=== PATIENT | female | born 1960 | race Caucasian/White ===

== ENCOUNTER 2016-08-10 07:57 | Day surgery (SDC) | payer OTHER ==
[~2016-08-10] VITALS: Ht 157.6 cm; Wt 70.9 kg
[2016-08-10] MEDS ORDERED: SODIUM CHLORIDE 0.9% 1,000 ML IV ONE (08:00)
[2016-08-10] MEDS ORDERED: MIDAZOLAM HCL 2 MG/2 ML VIAL ONE (08:07)
[2016-08-10] MEDS ORDERED: FentaNYL CITRATE-PF 100 MCG/2 ML VIAL ONE (08:07)
[2016-08-10] MEDS ORDERED: LEVO75 PO (08:25)
[2016-08-10] MEDS ORDERED: SIME125C81 PO (08:25)
[2016-08-10] MEDS ORDERED: LACT30L PO (08:25)
[2016-08-10] MEDS ORDERED: LIDO5JEL7 TP (08:25)
[2016-08-10] MEDS ORDERED: MECL-111 PO (08:25)
[2016-08-10] MEDS ORDERED: ONDA4 PO (08:25)
[2016-08-10] MEDS ORDERED: LOPE2 PO (08:25)
[2016-08-10] MEDS ORDERED: QUET200T PO (08:25)
[2016-08-10] MEDS ORDERED: SERT100T12 PO (08:25)
[2016-08-10] MEDS ORDERED: GABA-531 PO (08:25)
[2016-08-10] MEDS ORDERED: TRAZ-147 PO (08:25)
[2016-08-10] MEDS ORDERED: AMOX200S7 PO (08:25)
[2016-08-10] MEDS ORDERED: OXYB5 PO (08:25)
[2016-08-10] MEDS ORDERED: FLUT16H NASAL (08:25)
[2016-08-10] MEDS ORDERED: OMEG1CAP82 PO (08:25)
[2016-08-10] MEDS ORDERED: PRAV40 PO (08:26)
[2016-08-10] MEDS ORDERED: OMEP20 PO (08:26)
[2016-08-10] MEDS ORDERED: NAPR-58 PO (08:26)
[2016-08-10] MEDS ORDERED: MethylPREDNISolone SOD SUCC 125 MG/2 ML VIAL IVP ONE (08:45)
[2016-08-10] MEDS ORDERED: MethylPREDNISolone SOD SUCC 125 MG/2 ML VIAL ONE (09:34)
[2016-08-10] MEDS ORDERED: LIDOCAINE HCL 2% 30 ML JELLY TP ONE (12:00)
[2016-08-10] MEDS ORDERED: BENZOCAINE 20% 50 MCG/SPRAY 57 GM TP ONE (12:00)
[2016-08-10] MEDS ORDERED: ALBUTEROL SULFATE 2.5 MG/0.5 ML NEB SOLUTION NEB ONE (12:00)
[2016-08-10] MEDS ORDERED: LIDOCAINE HCL 4% 50 ML SOLUTION TP ONE (12:00)
[2016-08-10] MEDS ORDERED: OXYGEN THERAPY IH SCH (20:00)
== END 2016-08-10 10:50 | disposition home or self-care (01) ==
LOC: SURGERY 07:57
PROVIDERS: ATTEND Internal Medicine Critical Care Medicine
DX: J38.4 Edema of larynx (principal); B37.0 Candidal stomatitis; M54.9 Dorsalgia, unspecified; M54.30 Sciatica, unspecified side; F17.200 Nicotine dependence, unspecified, uncomplicated; Z72.89 Other problems related to lifestyle
CPT/HCPCS: 31623; 31624; 71010; 87015 ×2; 87070; 87077; 87101; 87147; 87186; 87205; 87220; J2250; J2930; J3010; J7030; 88108; 88312